=== PATIENT | male | born 1950 | race Caucasian/White ===

== ENCOUNTER 2018-12-30 13:45 | Outpatient (RCR) | payer OTHER, SELFPAY ==
[2018-12-20 13:44] VITALS: BP 123/76; PULSE 95; RESP 18; TEMP 36.1
--- NOTE | 2018-12-20 15:13 | PCM.WC.PN ---
(1) Ulcer of right lower leg Status: Chronic Current Visit: Yes Code(s): L97.919 - Non-pressure chronic ulcer of unspecified part of right lower leg with unspecified severity (2) Edema of both lower extremities Status: Chronic Current Visit: Yes Code(s): R60.0 - Localized edema (3) Type 2 diabetes mellitus Status: Chronic Current Visit: Yes Code(s): E11.9 - Type 2 diabetes mellitus without complications Type of Wound Date of Service: 12/20/18 Chief Complaint: Right anterior lower leg. History of Wound: Patient was hospitalized on 11/25/[address] [facility] in [place] for cellulitis. He was discharged to an F for help with his wound care. He is now home. We will attempt to obtain his hospital records. His cellulitis left him with two opened ulcers of his right lower leg. The posterior right leg ulcer is now healed. The right anterior lower leg is opened and draining. - Physical Exam Vital Signs Temp Pulse Resp BP 97.0 F L 95 18 123/76 H 12/20/18 13:44 12/20/18 13:44 12/20/18 13:44 12/20/18 13:44 Wound Measurements and Assessment WC - Nurse 1 - General Ulcer Measurement Start: 12/20/18 13:14 Freq: Status: Active Protocol: Activity Type Activity Date Activity User E-Sign Co-Sign Detail Recorded Client Recorded Date Recorded By Document 12/20/18 13:44 HI [id number] 12/20/18 13:57 HI 12/20/18 13:44 Wound Center Nurse 1 [Ulcer Assessment] #2 R Post Calf -Current Size (cm) - Length 6.5 -Current Size (cm) - Width 9.0 -Current Size (cm) - Depth 0.1 -Total Square Cm 58.50 -Date of Last Picture (Recall this 12/20/18 field) -Photo Taken Yes -Exudate Amt Medium -Exudate Type Serous -Wound Margin Flat & Intact -Granulation Amt Large (67-100%) -Granulation Quality Pale,Sinai,Red -Slough/Fibrin No -Texture (Leisa-wound Skin Appearance) Assessed, Excoriation, Localized Edema -Moisture (Leisa-wound Skin Appearance Assessed, ) Maceration, Weeping -Color (Leisa-wound Skin Appearance) Assessed -Temperature (Leisa-wound Skin No Abnormality Appearance) (Pt Warm) -Tenderness on Palpation (Leisa-wound No Skin Appearance) -Ulcer Cleansing Wound Cleanser -Foul Odor after Cleansing No -Anesthetic Used 4% Lidocaine Solution #1 R Anterior Dotson -Current Size (cm) - Length 9 -Current Size (cm) - Width 10.5 -Current Size (cm) - Depth 0.1 -Total Square Cm 94.5 -Date of Last Picture (Recall this 12/20/18 field) -Photo Taken Yes -Exudate Amt Medium -Exudate Type Serous -Wound Margin Flat & Intact -Granulation Amt Large (67-100%) -Granulation Quality Pale,Sinai,Red -Slough/Fibrin No -Texture (Leisa-wound Skin Appearance) Assessed, Localized Edema -Moisture (Leisa-wound Skin Appearance Assessed, ) Weeping -Color (Leisa-wound Skin Appearance) Assessed, Erythema -Temperature (Leisa-wound Skin No Abnormality Appearance) (Pt Warm) -Tenderness on Palpation (Leisa-wound No Skin Appearance) -Ulcer Cleansing Wound Cleanser -Foul Odor after Cleansing No -Anesthetic Used 4% Lidocaine Solution [Edema Assessment] -Right Calf (cm) 47 -Right Ankle (cm) 32 WC - Nurse 2 - General Ulcer CM Notes Start: 12/20/18 13:14 Freq: Status: Active Protocol: Activity Type Activity Date Activity User E-Sign Co-Sign Detail Recorded Client Recorded Date Recorded By Document 12/20/18 14:22 HONG [id number] 12/20/18 14:24 HONG 12/20/18 14:22 Wound Center Nurse 2 [Procedure/Treatment] #2 R Post Calf -Time 14:22 -Correct Patient No -Correct Side, Site, Position No -Correct Procedure No -Procedure Performed No -Post Debridement Size (cm) - Length 0 -Post Debridement Size (cm) - Width 0 -Post Debridement Size (cm) - Depth 0 -Total Square Cm 0 -Wound/Ulcer Outcome Healed- Epithelialized -Ulcer Cleansing Rinsed/ Irrigated with Saline -Foul Odor after Cleansing No -Bioengineered Tissue No -Bleeding Controlled with Pressure -Offloading No -Treatment Response Procedure Tolerated Well #1 R Anterior Dotson -Time 14:22 -Correct Patient Yes -Correct Side, Site, Position Yes -Correct Procedure Yes -Procedure Performed Yes -Type of Procedure Debridement -Clinical Debridement Subcutaneous -Post Debridement Size (cm) - Length 11 -Post Debridement Size (cm) - Width 8.8 -Post Debridement Size (cm) - Depth 0.1 -Total Square Cm 96.8 -Wound/Ulcer Outcome Not Healed -Ulcer Cleansing Rinsed/ Irrigated with Saline -Foul Odor after Cleansing No -Bioengineered Tissue No -Bleeding Controlled with Pressure -Offloading No -Treatment Response Procedure Tolerated Well [See Physician Procedure note for Specifics] Pain Scale: 0-10 Numeric [Pain] -Is Patient Pain Free? Yes Debridement Note Post-Debridement Measurements/Treatment WC - Nurse 2 - General Ulcer CM Notes Start: 12/20/18 13:14 Freq: Status: Active Protocol: Activity Type Activity Date Activity User E-Sign Co-Sign Detail Recorded Client Recorded Date Recorded By Document 12/20/18 14:22 HONG [id number] 12/20/18 14:24 HONG 12/20/18 14:22 Wound Center Nurse 2 #2 R Post Calf -Time 14:22 -Correct Patient No -Correct Side, Site, Position No -Correct Procedure No -Procedure Performed No -Post Debridement Size (cm) - Length 0 -Post Debridement Size (cm) - Width 0 -Post Debridement Size (cm) - Depth 0 -Total Square Cm 0 -Wound/Ulcer Outcome Healed- Epithelialized -Ulcer Cleansing Rinsed/ Irrigated with Saline -Foul Odor after Cleansing No -Bioengineered Tissue No -Bleeding Controlled with Pressure -Offloading No -Treatment Response Procedure Tolerated Well #1 R Anterior Dotson -Time 14:22 -Correct Patient Yes -Correct Side, Site, Position Yes -Correct Procedure Yes -Procedure Performed Yes -Type of Procedure Debridement -Clinical Debridement Subcutaneous -Post Debridement Size (cm) - Length 11 -Post Debridement Size (cm) - Width 8.8 -Post Debridement Size (cm) - Depth 0.1 -Total Square Cm 96.8 -Wound/Ulcer Outcome Not Healed -Ulcer Cleansing Rinsed/ Irrigated with Saline -Foul Odor after Cleansing No -Bioengineered Tissue No -Bleeding Controlled with Pressure -Offloading No -Treatment Response Procedure Tolerated Well Pain Scale: 0-10 Numeric Is Patient Pain Free? Yes Assessment/Plan Active Problems Ulcer of right lower leg (Chronic) Type 2 diabetes mellitus (Chronic) Edema of both lower extremities (Chronic)
--- NOTE | 2018-12-20 16:04 | PCM.WC.HP ---
(1) Ulcer of right lower leg Status: Chronic Code(s): L97.919 - Non-pressure chronic ulcer of unspecified part of right lower leg with unspecified severity (2) Edema of both lower extremities Status: Chronic Code(s): R60.0 - Localized edema (3) Type 2 diabetes mellitus Status: Chronic Code(s): E11.9 - Type 2 diabetes mellitus without complications (4) Tobacco abuse disorder Status: Chronic Code(s): Z72.0 - Tobacco use History of Present Illness Date of Service: 12/20/18 Chief Complaint: Right anterior lower leg ulcer History of Wound: Patient was hospitalized on 11/25/18 at [facility] in [place] for cellulitis. He was discharged to an F for help with his wound care. He is now home. We will attempt to obtain his hospital records. His cellulitis left him with two opened ulcers of his right lower leg. The posterior right leg ulcer is now healed. The right anterior lower leg is opened and draining. We will order Venous and Arterial studies. Wound care will be daily collagen hydrogel covered by adaptic. He will use tubigrip for compression. He denies any fevers, chills, nausea or vomiting. Past Medical History Past Medical History: Chronic Problems Ulcer of right lower leg (Chronic) Type 2 diabetes mellitus (Chronic) Edema of both lower extremities (Chronic) Tobacco abuse disorder (Chronic) Past Medical History: Obstructive sleep apnea, hypertension and elevated cholesterol Allergies/Adverse Reactions: Allergies No Known Allergies Allergy (Verified 12/20/18 14:26) Home Medications: Ambulatory Orders Medication Instructions Recorded Aspirin [Aspir-Low] 81 mg PO DAILY 12/20/18 Atorvastatin Calcium [Lipitor] 20 mg PO QHS 12/20/18 Cholecalciferol (Vitamin D3) 5,000 unit PO DAILY 12/20/18 [Vitamin D3] Glipizide 5 mg PO DAILY 12/20/18 Hydrochlorothiazide [Hctz] 25 mg PO DAILY 12/20/18 Lisinopril 5 mg PO DAILY 12/20/18 Multivitamin [Multivitamins] 1 ea PO DAILY 12/20/18 Niacin [Niacin ER] 1,000 mg PO DAILY 12/20/18 Potassium Chloride [Klor-Con M20] 20 meq PO DAILY 12/20/18 Silver Sulfadiazine 1% Crm 1 applic TOPICAL DAILY 12/20/18 [Silvadene (BK)] Smoking Status: Current every day smoker Review of Systems Constitutional: Denies: Chills, Fever, Weight Change Eyes: Denies: Pain, Vision Change HEENT: Denies: Difficulty Hearing, Difficulty Swallowing, Sinus Congestion Cardiovascular: Denies: Chest Pain, Palpitations Respiratory: Denies: Cough, Shortness of Breath Gastrointestinal: Denies: Diarrhea, Nausea, Vomiting Skin: Reports: Wounds - right anterior leg ulcer. Right postior leg ulcer is now healed. Neurological: Denies: Balance problems, Slurred speech, Confusion Endocrine: Denies: Heat/ Cold Intolerance, Polydipsia, Polyuria - Physical Exam Vital Signs Temp Pulse Resp BP 97.0 F L 95 18 123/76 H 12/20/18 13:44 12/20/18 13:44 12/20/18 13:44 12/20/18 13:44 General: Alert, Oriented x3, Cooperative HEENT: Atraumatic Oral: Moist Mucosa Lungs: Clear to auscultation, Normal air movement Cardiovascular: Regular rate, Regular Rhythm Abdomen: Bowel Sounds Present, Soft, Obese Extremities: Capillary Refill Less than 3 Seconds, Diminished Peripheral Pulses, Edema Skin: Ulcer/ Wound - Right anterior lower leg ulcer. Right posterior ulcer is healed. Wound Measurements and Assessment WC - Nurse 1 - General Ulcer Measurement Start: 12/20/18 13:14 Freq: Status: Active Protocol: Activity Type Activity Date Activity User E-Sign Co-Sign Detail Recorded Client Recorded Date Recorded By Document 12/20/18 13:44 OR [id number] 12/20/18 13:57 OR 12/20/18 13:44 Wound Center Nurse 1 [Ulcer Assessment] #2 R Post Calf -Current Size (cm) - Length 6.5 -Current Size (cm) - Width 9.0 -Current Size (cm) - Depth 0.1 -Total Square Cm 58.50 -Date of Last Picture (Recall this 12/20/18 field) -Photo Taken Yes -Exudate Amt Medium -Exudate Type Serous -Wound Margin Flat & Intact -Granulation Amt Large (67-100%) -Granulation Quality Pale,Amesti,Red -Slough/Fibrin No -Texture (Leisa-wound Skin Appearance) Assessed, Excoriation, Localized Edema -Moisture (Leisa-wound Skin Appearance Assessed, ) Maceration, Weeping -Color (Leisa-wound Skin Appearance) Assessed -Temperature (Leisa-wound Skin No Abnormality Appearance) (Pt Warm) -Tenderness on Palpation (Leisa-wound No Skin Appearance) -Ulcer Cleansing Wound Cleanser -Foul Odor after Cleansing No -Anesthetic Used 4% Lidocaine Solution #1 R Anterior Dotson -Current Size (cm) - Length 9 -Current Size (cm) - Width 10.5 -Current Size (cm) - Depth 0.1 -Total Square Cm 94.5 -Date of Last Picture (Recall this 12/20/18 field) -Photo Taken Yes -Exudate Amt Medium -Exudate Type Serous -Wound Margin Flat & Intact -Granulation Amt Large (67-100%) -Granulation Quality Pale,Amesti,Red -Slough/Fibrin No -Texture (Leisa-wound Skin Appearance) Assessed, Localized Edema -Moisture (Leisa-wound Skin Appearance Assessed, ) Weeping -Color (Leisa-wound Skin Appearance) Assessed, Erythema -Temperature (Leisa-wound Skin No Abnormality Appearance) (Pt Warm) -Tenderness on Palpation (Leisa-wound No Skin Appearance) -Ulcer Cleansing Wound Cleanser -Foul Odor after Cleansing No -Anesthetic Used 4% Lidocaine Solution [Edema Assessment] -Right Calf (cm) 47 -Right Ankle (cm) 32 WC - Nurse 2 - General Ulcer CM Notes Start: 12/20/18 13:14 Freq: Status: Active Protocol: Activity Type Activity Date Activity User E-Sign Co-Sign Detail Recorded Client Recorded Date Recorded By Document 12/20/18 14:22 HONG [id number] 12/20/18 14:24 HONG 12/20/18 14:22 Wound Center Nurse 2 [Procedure/Treatment] #2 R Post Calf -Time 14:22 -Correct Patient No -Correct Side, Site, Position No -Correct Procedure No -Procedure Performed No -Post Debridement Size (cm) - Length 0 -Post Debridement Size (cm) - Width 0 -Post Debridement Size (cm) - Depth 0 -Total Square Cm 0 -Wound/Ulcer Outcome Healed- Epithelialized -Ulcer Cleansing Rinsed/ Irrigated with Saline -Foul Odor after Cleansing No -Bioengineered Tissue No -Bleeding Controlled with Pressure -Offloading No -Treatment Response Procedure Tolerated Well #1 R Anterior Dotson -Time 14:22 -Correct Patient Yes -Correct Side, Site, Position Yes -Correct Procedure Yes -Procedure Performed Yes -Type of Procedure Debridement -Clinical Debridement Subcutaneous -Post Debridement Size (cm) - Length 11 -Post Debridement Size (cm) - Width 8.8 -Post Debridement Size (cm) - Depth 0.1 -Total Square Cm 96.8 -Wound/Ulcer Outcome Not Healed -Ulcer Cleansing Rinsed/ Irrigated with Saline -Foul Odor after Cleansing No -Bioengineered Tissue No -Bleeding Controlled with Pressure -Offloading No -Treatment Response Procedure Tolerated Well [See Physician Procedure note for Specifics] Pain Scale: 0-10 Numeric [Pain] -Is Patient Pain Free? Yes Musculoskeletal: No Tenderness to Palpation of Joints or Extremities Neurological: Neuro grossly intact Psych/Mental Status: Normal Affect, Appropriate Debridement Note Post-Debridement Measurements/Treatment WC - Nurse 2 - General Ulcer CM Notes Start: 12/20/18 13:14 Freq: Status: Active Protocol: Activity Type Activity Date Activity User E-Sign Co-Sign Detail Recorded Client Recorded Date Recorded By Document 12/20/18 14:22 [id number] 12/20/18 14:24 12/20/18 14:22 Wound Center Nurse 2 #2 R Post Calf -Time 14:22 -Correct Patient No -Correct Side, Site, Position No -Correct Procedure No -Procedure Performed No -Post Debridement Size (cm) - Length 0 -Post Debridement Size (cm) - Width 0 -Post Debridement Size (cm) - Depth 0 -Total Square Cm 0 -Wound/Ulcer Outcome Healed- Epithelialized -Ulcer Cleansing Rinsed/ Irrigated with Saline -Foul Odor after Cleansing No -Bioengineered Tissue No -Bleeding Controlled with Pressure -Offloading No -Treatment Response Procedure Tolerated Well #1 R Anterior Dotson -Time 14:22 -Correct Patient Yes -Correct Side, Site, Position Yes -Correct Procedure Yes -Procedure Performed Yes -Type of Procedure Debridement -Clinical Debridement Subcutaneous -Post Debridement Size (cm) - Length 11 -Post Debridement Size (cm) - Width 8.8 -Post Debridement Size (cm) - Depth 0.1 -Total Square Cm 96.8 -Wound/Ulcer Outcome Not Healed -Ulcer Cleansing Rinsed/ Irrigated with Saline -Foul Odor after Cleansing No -Bioengineered Tissue No -Bleeding Controlled with Pressure -Offloading No -Treatment Response Procedure Tolerated Well Pain Scale: 0-10 Numeric Is Patient Pain Free? Yes Wound debrided: Right anterior lower leg Laterality: Right Type of Debridement: Excisional debridement Anesthesia Used: 4% Lidocaine Solution, 5% Lidocaine Gel Depth: Down to and including healthy tissue, in the subcutaneous layer Percentage of wound debrided: 100 Instrument Used: 7mm curette Tissue Removed: Subcutaneous tissue and slough Severity: Limited To Skin Breakdown Amount of bleeding with debridement: Mild Bleeding Controlled with: Pressure, Compression and gauze Patient tolerated procedure well Assessment/Plan Ordered arterial and venous studies. Assessment: 1. Ulcer of right anterior lower leg. 2. Edema of both lower extremities. 3. Type 2 DM. 4. Tobacco abuse disorder Plan: Patient was seen and evaluated in the wound center today. A subcutaneous debridement was performed and patient tolerated it well. Wound care to his right anterior lower leg will be colloagen hydrogel covered by adaptic, with tubigrip for compression. Will order arterial and venous studies. Due to his significant amount of edema, would like to use 3M double wraps on him in the future after we find out his vascular studies. Encouraged him to elevate his legs when he is seated. Encouraged him to increase his protein intake to help with wound healing. Encouraged him to stop smoking. He willl follow up in one week. Code Visit Office Visits / Consults: 72160 OV L3 New - 25 modifier [id number]: [id number] Niki subq tissue 20 sq cm/< Add On Codes: 80560 Niki subq tissue add-on - x4
--- NOTE | 2018-12-27 09:33 | VDLE_ITS ---
Reason For Study: Edema RIGHT LEFT CFV is compressible, spontaneous, phasic, CFV is compressible, spontaneous, phasic, competent and demonstrates normal competent, and demonstrates normal augmentation. augmentation. FV is compressible, spontaneous, phasic, FV is compressible, spontaneous, phasic, competent and demonstrates normal competent and demonstrates normal augmentation. augmentation. POP V is compressible, spontaneous, phasic, POP V is compressible, spontaneous, phasic, competent and demonstrates normal competent and demonstrates normal augmentation. augmentation. T/P Trunk is compressible. T/P Trunk is compressible. PTV is compressible. PTV is compressible. RT PerV is compressible. LT PerV is compressible. SFJ is INCOMPETENT and measures 0.87 x 1.01 SFJ is competent and measures 0.67 x 0.66 cm. cm. GSV proximal thigh measures 0.74 x 0.76 cm. GSV proximal thigh measures 0.61 x 0.61 cm. GSV at knee measures 0.44 x 0.47 cm. GSV at knee measures 0.54 x 0.58 cm. GSV INCOMPETENT throughout for greater than GSV is competent throughout. 0.5 seconds. SSV proximal calf is competent and measures ASV proximal calf is INCOMPETENT for greater 0.31 x 0.31 cm. than 0.5 seconds and measures 0.33 x 0.36 cm. Procedure SSV proximal calf is INCOMPETENT for greater Exam performed in department. than 0.5 seconds and measures 0.16 x 0.16 cm. A preliminary report was called and/or faxed to . Interpretation Summary Deep veins of the lower extremities are bilaterally patent and compressible segmentally. There is no evidence of deep vein thrombosis on either side. Valvular competence appears intact within the proximal deep venous systems bilaterally. The great saphenous veins appear bilaterally patent and compressible segmentally. The right sapheno-femoral junction is incompetent . The left sapheno- femoral junction is competent . The right great saphenous vein appears segmentally competent. The left great saphenous vein appears segmentally incompetent. The right small saphenous vein is patent and competent. The left small saphenous vein is patent and incompetent. The left accessory saphenous vein in the proximal calf is incompetent. Ordering Physician: Juliane Mcdowell Referring Physician: Norman Briceno Performed By: Celia Curran RVT
--- NOTE | 2018-12-27 09:34 | ART_ITS ---
Reason For Study: PVD/PAD Procedure A bilateral lower extremity continuous wave Doppler with analog waveform analysis,segmental pressures,and ankle brachial indexes without exercise. Left Segmental Pressures Left brachial= 145mmHg. Left posterior tibial artery = 165mmHg. Left dorsalis pedis artery = 155mmHg. Left digit = 104 mmHg. The left dorsalis pedis waveforms are triphasic. The left posterior tibial artery waveforms are triphasic. Right Segmental Pressures Right brachial= 134mmHg. Right posterior tibial artery = 131mmHg. Right dorsalis pedis artery = 147mmHg. Right digit = 88 mmHg. The right dorsalis pedis waveforms are triphasic. The right posterior tibial artery waveforms are triphasic. Indices The right ankle brachial index by the dorsalis pedis is 1.01. The right ankle brachial index by the posterior tibial artery is 0.90. The right digital-brachial index is 0.61. The left ankle brachial index by the dorsalis pedis is 1.07. The left ankle brachial index by the posterior tibial artery is 1.14. The left digital-brachial index is 0.72. Interpretation Summary Triphasic Doppler waveforms are noted at ankle level bilaterally. Pulse-volume recordings appear satisfactory at all levels bilaterally. Resting ankle-brachial indices are normal bilaterally. The right digital-brachial index is mildly diminished. The left digital-brachial index is normal. Arterial flow appears normal to ankle level bilaterally, as well as at digital level on the left. There is evidence of mild, distal, small-vessel arterial occlusive disease at digital level on the right. Ordering Physician: Juliane Mcdowell Referring Physician: Norman Briceno Performed By: Celia Curran RVMike
[2018-12-27 13:16] VITALS: BP 140/79; PULSE 74; RESP 18; TEMP 36.2
--- NOTE | 2018-12-27 14:46 | PCM.WC.PN ---
(1) Ulcer of right lower leg Status: Chronic Current Visit: Yes Code(s): L97.919 - Non-pressure chronic ulcer of unspecified part of right lower leg with unspecified severity (2) Edema of both lower extremities Status: Chronic Current Visit: Yes Code(s): R60.0 - Localized edema (3) Type 2 diabetes mellitus Status: Chronic Current Visit: Yes Code(s): E11.9 - Type 2 diabetes mellitus without complications (4) Tobacco abuse disorder Status: Chronic Current Visit: Yes Code(s): Z72.0 - Tobacco use Type of Wound Date of Service: 12/27/18 Chief Complaint: Right anterior lower leg ulcer History of Wound: Patient was hospitalized on 11/25/18 at [facility] in [place] for cellulitis. He was discharged to an ECF for help with his wound care. He is now home. His cellulitis left him with two opened ulcers of his right lower leg. He has a +3 pitting edema bilateral lower extremities. The posterior right leg ulcer is now healed. The right anterior lower leg is opened and draining. Wound care will be daily collagen hydrogel covered by adaptic. He will use tubigrip for compression. He had vascular studies on 12/27/18. Venous Duplex US showed the right sapheno-femoral junction is incompeten. The left great saphenous vein appears segmentally incompetent. The left small saphenous vein is patent and incompetent. The left accessory saphenous vein in the proximal calf is incompetent. The other veins are competent. Arterial studies show right ZAYDA=1.01, right digital brachial index is 0.61, there is evidence of mild, distal, small-vessel arterial occlusive disease at the digital level on the right. Left ZAYDA=1.07, the left digital-brachial index is 0.72, arterial rayna is normal on the left, including at the digital level. He denies any fevers, chills, nausea or vomiting. Progress of Wound: Stable - Physical Exam Vital Signs Temp Pulse Resp BP 97.1 F L 74 18 140/79 H 12/27/18 13:16 12/27/18 13:16 12/27/18 13:16 12/27/18 13:16 General: Alert, Oriented x3, Cooperative HEENT: Atraumatic Oral: Moist Mucosa Lungs: Normal air movement Cardiovascular: Regular rate Extremities: Capillary Refill Less than 3 Seconds, Diminished Peripheral Pulses, Edema - Bilateral lower extremity edema +3 pitting Skin: Ulcer/ Wound - Right anterior lower leg ulcer Wound Measurements and Assessment WC - Nurse 1 - General Ulcer Measurement Start: 12/20/18 13:14 Freq: Status: Active Protocol: Activity Type Activity Date Activity User E-Sign Co-Sign Detail Recorded Client Recorded Date Recorded By Document 12/27/18 13:16 DL [id number] 12/27/18 13:24 DL 12/27/18 13:16 Wound Center Nurse 1 [Ulcer Assessment] #1 R Anterior Dotson -Current Size (cm) - Length 0.1 -Current Size (cm) - Width 0.1 -Current Size (cm) - Depth 0.1 -Total Square Cm 0.01 -Photo Taken No -Exudate Amt None Present -Wound Margin Flat & Intact -Granulation Amt Large (67-100%) -Granulation Quality [place] -Necrosis Amt None Present (0 %) -Structure Exposed N/A -Texture (Leisa-wound Skin Appearance) Scarring -Moisture (Leisa-wound Skin Appearance Dry/Scaly ) -Color (Leisa-wound Skin Appearance) Hemosiderin Staining -Temperature (Leisa-wound Skin No Abnormality Appearance) (Pt Warm) -Tenderness on Palpation (Leisa-wound No Skin Appearance) -Ulcer Cleansing Wound Cleanser -Foul Odor after Cleansing No -Anesthetic Used 4% Lidocaine Solution [Edema Assessment] -Right Calf (cm) 50.5 -Right Ankle (cm) 34 - Nurse 2 - General Ulcer CM Notes Start: 12/20/18 13:14 Freq: Status: Active Protocol: Activity Type Activity Date Activity User E-Sign Co-Sign Detail Recorded Client Recorded Date Recorded By Document 12/27/18 13:39 [id number] 12/27/18 13:45 12/27/18 13:39 Wound Center Nurse 2 [Procedure/Treatment] #1 R Anterior Dotson -Time 13:42 -Correct Patient Yes -Correct Side, Site, Position Yes -Correct Procedure Yes -Procedure Performed Yes -Type of Procedure Debridement -Clinical Debridement Subcutaneous -Post Debridement Size (cm) - Length 1.5 -Post Debridement Size (cm) - Width 1.0 -Post Debridement Size (cm) - Depth 0.1 -Total Square Cm 1.50 -Wound/Ulcer Outcome Not Healed -Ulcer Cleansing Rinsed/ Irrigated with Saline -Foul Odor after Cleansing No -Bioengineered Tissue No -Bleeding Controlled with Pressure -Offloading No -Treatment Response Procedure Tolerated Well [See Physician Procedure note for Specifics] Pain Scale: 0-10 Numeric [Pain] -Is Patient Pain Free? Yes Neurological: Neuro grossly intact Psych/Mental Status: Normal Affect, Appropriate Debridement Note Post-Debridement Measurements/Treatment WC - Nurse 2 - General Ulcer CM Notes Start: 12/20/18 13:14 Freq: Status: Active Protocol: Activity Type Activity Date Activity User E-Sign Co-Sign Detail Recorded Client Recorded Date Recorded By Document 12/20/18 14:22 [id number] 12/20/18 14:24 Document 12/27/18 13:39 [id number] 12/27/18 13:45 12/20/18 12/27/18 14:22 13:39 Wound Center Nurse 2 #2 R Post Calf -Time 14:22 -Correct Patient No -Correct Side, Site, Position No -Correct Procedure No -Procedure Performed No -Post Debridement Size (cm) - Length 0 -Post Debridement Size (cm) - Width 0 -Post Debridement Size (cm) - Depth 0 -Total Square Cm 0 -Wound/Ulcer Outcome Healed- Epithelialized -Ulcer Cleansing Rinsed/ Irrigated with Saline -Foul Odor after Cleansing No -Bioengineered Tissue No -Bleeding Controlled with Pressure -Offloading No -Treatment Response Procedure Tolerated Well #1 R Anterior Dotson -Time 14:22 13:42 -Correct Patient Yes Yes -Correct Side, Site, Position Yes Yes -Correct Procedure Yes Yes -Procedure Performed Yes Yes -Type of Procedure Debridement Debridement -Clinical Debridement Subcutaneous Subcutaneous -Post Debridement Size (cm) - Length 11 1.5 -Post Debridement Size (cm) - Width 8.8 1.0 -Post Debridement Size (cm) - Depth 0.1 0.1 -Total Square Cm 96.8 1.50 -Wound/Ulcer Outcome Not Healed Not Healed -Ulcer Cleansing Rinsed/ Rinsed/ Irrigated with Irrigated with Saline Saline -Foul Odor after Cleansing No No -Bioengineered Tissue No No -Bleeding Controlled with Pressure Pressure -Offloading No No -Treatment Response Procedure Procedure Tolerated Well Tolerated Well Pain Scale: 0-10 Numeric Is Patient Pain Free? Yes Yes Wound debrided: anterior lower leg Laterality: Right Type of Debridement: Excisional debridement Anesthesia Used: 4% Lidocaine Solution, 5% Lidocaine Gel Depth: Down to and including healthy tissue, in the subcutaneous layer Percentage of wound debrided: 100 Instrument Used: 7mm curette Tissue Removed: Subcutaneous tissue and slough Severity: Limited To Skin Breakdown Amount of bleeding with debridement: Mild Bleeding Controlled with: Pressure, Compression and gauze Patient tolerated procedure well Assessment/Plan Active Problems Ulcer of right lower leg (Chronic) Type 2 diabetes mellitus (Chronic) Edema of both lower extremities (Chronic) Tobacco abuse disorder (Chronic) Assessment: 1. Ulcer of right anterior lower leg. 2. Edema of both lower extremities. 3. Type 2 DM. 4. Tobacco abuse disorder Plan: Patient was seen and evaluated in the wound center today. A subcutaneous debridement was performed and patient tolerated it well. Wound care to his right anterior lower leg will be colloagen hydrogel covered by adaptic, with tubigrip for compression. Obtained arterial and venous studies which showed some venous insufficency bilaterally. There is small-vessel arterial occlusive disease at the digital level on the right. None on the left. Due to his significant amount of edema, will start 3M double wraps bilaterally. He will come back on Wednesday for a nurse visit to evaluate how he tolerating the waps and to be rewrapped. Encouraged him to elevate his legs when he is seated. Encouraged him to increase his protein intake to help with wound healing. Encouraged him to stop smoking. He willl follow up on Wednesday for a nurse visit and in one week. Code Visit [id number]: [id number] Niki subq tissue 20 sq cm/<
== END 2018-12-31 23:59 ==
LOC: WC 13:45
PROVIDERS: Family Provider Internal Medicine; PCP Internal Medicine; Visit Provider Nurse Practitioner Family
DX: E11.622 Type 2 diabetes mellitus with other skin ulcer (principal); L97.211 Non-pressure chronic ulcer of right calf limited to breakdown of skin; R60.0 Localized edema; E11.51 Type 2 diabetes mellitus with diabetic peripheral angiopathy without gangrene; E78.00 Pure hypercholesterolemia, unspecified; I10 Essential (primary) hypertension; G47.33 Obstructive sleep apnea (adult) (pediatric); F17.200 Nicotine dependence, unspecified, uncomplicated; Z79.899 Other long term (current) drug therapy; Z79.82 Long term (current) use of aspirin
CPT/HCPCS: 11042; 11045; 29581; 93923; 93970; 99203; 99212; G0463

== ENCOUNTER 2019-01-17 13:30 | Outpatient (RCR) | payer OTHER, SELFPAY ==
[2019-01-01 01:13] VITALS: BP 140/79; PULSE 74; RESP 18; TEMP 36.2
[2019-01-03 15:25] VITALS: BP 155/74; PULSE 92; RESP 20; TEMP 36.6
--- NOTE | 2019-01-03 16:29 | PCM.WC.PN ---
(1) Edema of both lower extremities Status: Chronic Code(s): R60.0 - Localized edema (2) Ulcer of right lower leg Status: Chronic Code(s): L97.919 - Non-pressure chronic ulcer of unspecified part of right lower leg with unspecified severity (3) Type 2 diabetes mellitus Status: Chronic Code(s): E11.9 - Type 2 diabetes mellitus without complications (4) Tobacco abuse disorder Status: Chronic Code(s): Z72.0 - Tobacco use Type of Wound Date of Service: 01/03/19 Chief Complaint: Right anterior lower leg ulcer History of Wound: Patient was hospitalized on 11/25/18 at [facility] in [place] for cellulitis. He was discharged to an ECF for help with his wound care. He is now home. His cellulitis left him with two opened ulcers of his right lower leg. He has a +3 pitting edema bilateral lower extremities. The posterior right leg ulcer is now healed. The right anterior lower leg is opened and draining. Wound care will be daily collagen hydrogel covered by adaptic. He will use tubigrip for compression. He had vascular studies on 12/27/18. Venous Duplex US showed the right sapheno-femoral junction is incompeten. The left great saphenous vein appears segmentally incompetent. The left small saphenous vein is patent and incompetent. The left accessory saphenous vein in the proximal calf is incompetent. The other veins are competent. Arterial studies show right ZAYDA=1.01, right digital brachial index is 0.61, there is evidence of mild, distal, small-vessel arterial occlusive disease at the digital level on the right. Left ZAYDA=1.07, the left digital-brachial index is 0.72, arterial rayna is normal on the left, including at the digital level. He denies any fevers, chills, nausea or vomiting. Progress of Wound: Right leg ulcer is healed. Continues to have +3 pitting edema although improved with 3M double wraps which he is tolerating - Physical Exam Vital Signs Temp Pulse Resp BP 97.8 F 92 20 H 155/74 H 01/03/19 15:25 01/03/19 15:25 01/03/19 15:25 01/03/19 15:25 General: Alert, Oriented x3, Cooperative HEENT: Atraumatic Oral: Moist Mucosa Lungs: Normal air movement Cardiovascular: Regular rate Extremities: Capillary Refill Less than 3 Seconds, Diminished Peripheral Pulses, Edema Skin: Ulcer/ Wound - right lower leg ulcer is healed Wound Measurements and Assessment - Nurse 1 - General Ulcer Measurement Start: 01/03/19 15:25 Freq: Status: Active Protocol: Activity Type Activity Date Activity User E-Sign Co-Sign Detail Recorded Client Recorded Date Recorded By Document 01/03/19 15:25 RB [id number] 01/03/19 15:34 RB 01/03/19 15:25 Wound Center Nurse 1 [Ulcer Assessment] #1 R Anterior Dotson -Combined with other wound No -Current Size (cm) - Length 0.1 -Current Size (cm) - Width 0.1 -Current Size (cm) - Depth 0.1 -Total Square Cm 0.01 -Photo Taken No -Tunneling No -Undermining/Tunneling No -Circular Undermining No -Exudate Amt None Present -Wound Margin Flat & Intact -Granulation Amt None Present (0 %) -Granulation Quality N/A -Slough/Fibrin No -Necrosis Amt None Present (0 %) -Texture (Leisa-wound Skin Appearance) Assessed, Localized Edema -Moisture (Leisa-wound Skin Appearance No Abnormality, ) Assessed -Color (Leisa-wound Skin Appearance) No Abnormality, Hemosiderin Staining -Temperature (Leisa-wound Skin No Abnormality Appearance) (Pt Warm) -Tenderness on Palpation (Leisa-wound No Skin Appearance) -Ulcer Cleansing soap and watetr -Foul Odor after Cleansing No [Edema Assessment] -Lower Limb Edema Present Yes -Right Calf (cm) 50.0 -Right Ankle (cm) 30.5 -Left Calf (cm) 45.8 -Left Ankle (cm) 26.0 - Nurse 2 - General Ulcer CM Notes Start: 01/03/19 15:25 Freq: Status: Active Protocol: Activity Type Activity Date Activity User E-Sign Co-Sign Detail Recorded Client Recorded Date Recorded By Document 01/03/19 16:02 [email or web address] [id number] 01/03/19 16:03 01/03/19 16:02 Wound Center Nurse 2 [Procedure/Treatment] #1 R Anterior Dotson -Correct Patient No -Correct Side, Site, Position No -Correct Procedure No -Procedure Performed No -Post Debridement Size (cm) - Length 0.1 -Post Debridement Size (cm) - Width 0.1 -Post Debridement Size (cm) - Depth 0.1 -Total Square Cm 0.01 -Wound/Ulcer Outcome Healed- Epithelialized [See Physician Procedure note for Specifics] Pain Scale: 0-10 Numeric [Pain] -Is Patient Pain Free? Yes Musculoskeletal: No Tenderness to Palpation of Joints or Extremities Neurological: Neuro grossly intact Psych/Mental Status: Normal Affect, Appropriate Debridement Note Post-Debridement Measurements/Treatment WC - Nurse 2 - General Ulcer CM Notes Start: 01/03/19 15:25 Freq: Status: Active Protocol: Activity Type Activity Date Activity User E-Sign Co-Sign Detail Recorded Client Recorded Date Recorded By Document 01/03/19 16:02 [id number] 01/03/19 16:03 HONG 01/03/19 16:02 Wound Center Nurse 2 #1 R Anterior Dotson -Correct Patient No -Correct Side, Site, Position No -Correct Procedure No -Procedure Performed No -Post Debridement Size (cm) - Length 0.1 -Post Debridement Size (cm) - Width 0.1 -Post Debridement Size (cm) - Depth 0.1 -Total Square Cm 0.01 -Wound/Ulcer Outcome Healed- Epithelialized Pain Scale: 0-10 Numeric Is Patient Pain Free? Yes No debridement was completed today Assessment/Plan Assessment: 1. Ulcer of right anterior lower leg. 2. Edema of both lower extremities. 3. Type 2 DM. 4. Tobacco abuse disorder Plan: Patient was seen and evaluated in the wound center today. His right leg ulcer is healed today. Obtained arterial and venous studies which showed some venous insufficency bilaterally. There is small-vessel arterial occlusive disease at the digital level on the right. None on the left. Due to his significant amount of edema, will continue 3M double wraps bilaterally. He tolerated them well, so he will return in one week. Encouraged him to elevate his legs when he is seated. Encouraged him to increase his protein intake to help with wound healing. Encouraged him to stop smoking. Instructed him to call if he develops any issues so he can come in early. If he has no issues he will follow up in one week. Code Visit Office Visits / Consults: [id number] OV L3 Est
[2019-01-10 13:25] VITALS: BP 134/62; PULSE 87; RESP 18; TEMP 36.2
--- NOTE | 2019-01-10 14:33 | PN.PCM_ITS ---
(1) Edema of both lower extremities Status: Chronic Current Visit: Yes Code(s): R60.0 - Localized edema (2) Ulcer of right lower leg Status: Chronic Current Visit: No Code(s): L97.919 - Non-pressure chronic ulcer of unspecified part of right lower leg with unspecified severity (3) Type 2 diabetes mellitus Status: Chronic Current Visit: Yes Code(s): E11.9 - Type 2 diabetes mellitus without complications (4) Tobacco abuse disorder Status: Chronic Current Visit: Yes Code(s): Z72.0 - Tobacco use Type of Wound Date of Service: 01/10/19 Chief Complaint: Right anterior lower leg ulcer History of Wound: Patient was hospitalized on 11/25/18 at [facility] in [place] for cellulitis. He was discharged to an ECF for help with his wound care. He is now home. His cellulitis left him with two opened ulcers of his right lower leg. He has a +3 pitting edema bilateral lower extremities. The posterior right leg ulcer is now healed. The right anterior lower leg is also healed. He had vascular studies on 12/27/18. Venous Duplex US showed the right sapheno-femoral junction is incompeten. The left great saphenous vein appears segmentally incompetent. The left small saphenous vein is patent and incompetent. The left accessory saphenous vein in the proximal calf is incompetent. The other veins are competent. Arterial studies show right ZAYDA=1.01, right digital brachial index is 0.61, there is evidence of mild, distal, small-vessel arterial occlusive disease at the digital level on the right. Left ZAYDA=1.07, the left digital-brachial index is 0.72, arterial rayna is normal on the left, including at the digital level. He denies any fevers, chills, nausea or vomiting. 3M double layer wraps will be used again this week to help with his bilateral lower leg edema. He has been tolerating the wraps well. His ulcers continue to remain healed. Will order Circaid compression stockings for him so they can be applied next week after the 3M wraps are removed. Progress of Wound: Right leg ulcer is healed. Edema has improved with 3M double wraps which he is tolerating well. Will order Circaid compression wraps for him. - Physical Exam Vital Signs Temp Pulse Resp BP 97.1 F L 87 18 134/62 H 01/10/19 13:25 01/10/19 13:25 01/10/19 13:25 01/10/19 13:25 General: Alert, Oriented x3, Cooperative HEENT: Atraumatic Oral: Moist Mucosa Lungs: Normal air movement Cardiovascular: Regular rate Abdomen: Obese Extremities: Capillary Refill Less than 3 Seconds, Diminished Peripheral Pulses, Edema Skin: No rashes, No breakdown Wound Measurements and Assessment WC - Nurse 1 - General Ulcer Measurement Start: 01/03/19 15:25 Freq: Status: Active Protocol: Activity Type Activity Date Activity User E-Sign Co-Sign Detail Recorded Client Recorded Date Recorded By Document 01/10/19 13:25 [id number] 01/10/19 13:33 01/10/19 13:25 Wound Center Nurse 1 [Ulcer Assessment] #1 R Anterior Dotson -Combined with other wound No -Current Size (cm) - Length 0 -Current Size (cm) - Width 0 -Current Size (cm) - Depth 0 -Total Square Cm 0 -Date of Last Picture (Recall this 01/10/19 field) -Photo Taken Yes -Undermining/Tunneling No -Circular Undermining No -Change in Wound Grade/Stage Yes Query Text:If change please identify the Stage/Grade in the comment (ie. S2 G3) -Exudate Amt None Present -Wound Margin Flat & Intact -Granulation Amt None Present (0 %) -Slough/Fibrin No -Necrosis Amt None Present (0 %) -Structure Exposed N/A -Texture (Leisa-wound Skin Appearance) No Abnormality, Assessed -Moisture (Leisa-wound Skin Appearance No Abnormality, ) Assessed -Color (Leisa-wound Skin Appearance) No Abnormality, Assessed -Temperature (Leisa-wound Skin No Abnormality Appearance) (Pt Warm) -Tenderness on Palpation (Leisa-wound No Skin Appearance) -Ulcer Cleansing Not Cleansed -Foul Odor after Cleansing No [Edema Assessment] -Lower Limb Edema Present Yes -Right Calf (cm) 46.6 -Right Ankle (cm) 30.7 -Left Calf (cm) 45.1 -Left Ankle (cm) 27.1 WC - Nurse 2 - General Ulcer CM Notes Start: 01/03/19 15:25 Freq: Status: Active Protocol: Activity Type Activity Date Activity User E-Sign Co-Sign Detail Recorded Client Recorded Date Recorded By Document 01/10/19 14:13 [id number] 01/10/19 14:13 01/10/19 14:13 Wound Center Nurse 2 [Procedure/Treatment] #1 R Anterior Dotson -Correct Patient No -Correct Side, Site, Position No -Correct Procedure No -Procedure Performed No -Post Debridement Size (cm) - Length 0 -Post Debridement Size (cm) - Width 0 -Post Debridement Size (cm) - Depth 0 -Total Square Cm 0 -Wound/Ulcer Outcome Healed- Epithelialized [See Physician Procedure note for Specifics] Pain Scale: 0-10 Numeric [Pain] -Is Patient Pain Free? Yes Musculoskeletal: No Tenderness to Palpation of Joints or Extremities Neurological: Neuro grossly intact Psych/Mental Status: Normal Affect, Appropriate Debridement Note Post-Debridement Measurements/Treatment WC - Nurse 2 - General Ulcer CM Notes Start: 01/03/19 15:25 Freq: Status: Active Protocol: Activity Type Activity Date Activity User E-Sign Co-Sign Detail Recorded Client Recorded Date Recorded By Document 01/03/19 16:02 [id number] 01/03/19 16:03 Document 01/10/19 14:13 [id number] 01/10/19 14:13 01/03/19 01/10/19 16:02 14:13 Wound Center Nurse 2 #1 R Anterior Dotson -Correct Patient No No -Correct Side, Site, Position No No -Correct Procedure No No -Procedure Performed No No -Post Debridement Size (cm) - Length 0.1 0 -Post Debridement Size (cm) - Width 0.1 0 -Post Debridement Size (cm) - Depth 0.1 0 -Total Square Cm 0.01 0 -Wound/Ulcer Outcome Healed- Healed- Epithelialized Epithelialized Pain Scale: 0-10 Numeric Is Patient Pain Free? Yes Yes No debridement was completed today Assessment/Plan Active Problems Type 2 diabetes mellitus (Chronic) Edema of both lower extremities (Chronic) Tobacco abuse disorder (Chronic) Assessment: 1. Ulcer of right anterior lower leg- healed. 2. Edema of both lower extremities. 3. Type 2 DM. 4. Tobacco abuse disorder Plan: Patient was seen and evaluated in the wound center today. His right leg ulcer continues to remain healed today. Obtained arterial and venous studies which showed some venous insufficency bilaterally. There is small-vessel arterial occlusive disease at the digital level on the right. None on the left. Due to his significant amount of edema, will continue 3M double wraps bilaterally. He tolerated them well, so he will return in one week. Encouraged him to elevate his legs when he is seated. Encouraged him to increase his protein intake to help with wound healing. Encouraged him to stop smoking. 3M double layer wraps will be used again this week to help with his bilateral lo wer leg edema. He has been tolerating the wraps well. His ulcers continue to remain healed. Will order Circaid compression stockings for him so they can be applied next week after the 3M wraps are removed. Will order Circaid compression stockings to apply to his lower extremities after we remove the 3M double layer wraps next week. Follow up in one week. Code Visit Office Visits / Consults: [id number] OV L3 Est
[2019-01-17 13:41] VITALS: BP 139/82; PULSE 70; RESP 18; TEMP 36.3
--- NOTE | 2019-01-17 15:39 | PCM.WC.PN ---
(1) Edema of both lower extremities Status: Chronic Code(s): R60.0 - Localized edema (2) Ulcer of right lower leg Status: Chronic Code(s): L97.919 - Non-pressure chronic ulcer of unspecified part of right lower leg with unspecified severity (3) Type 2 diabetes mellitus Status: Chronic Code(s): E11.9 - Type 2 diabetes mellitus without complications (4) Tobacco abuse disorder Status: Chronic Code(s): Z72.0 - Tobacco use Type of Wound Date of Service: 01/17/19 Chief Complaint: Right anterior lower leg ulcer History of Wound: Patient was hospitalized on 11/25/18 at [facility] in [place] for cellulitis. He was discharged to an ECF for help with his wound care. He is now home. His cellulitis left him with two opened ulcers of his right lower leg. He has a +3 pitting edema bilateral lower extremities. The posterior right leg ulcer is now healed. The right anterior lower leg is also healed. He had vascular studies on 12/27/18. Venous Duplex US showed the right sapheno-femoral junction is incompeten. The left great saphenous vein appears segmentally incompetent. The left small saphenous vein is patent and incompetent. The left accessory saphenous vein in the proximal calf is incompetent. The other veins are competent. Arterial studies show right ZAYDA=1.01, right digital brachial index is 0.61, there is evidence of mild, distal, small-vessel arterial occlusive disease at the digital level on the right. Left ZAYDA=1.07, the left digital-brachial index is 0.72, arterial rayna is normal on the left, including at the digital level. He denies any fevers, chills, nausea or vomiting. 3M double layer wraps will be used again this week to help with his bilateral lower leg edema. He has been tolerating the wraps well. His ulcers continue to remain healed. Will order Circaid compression stockings for him so they can be applied next week after the 3M wraps are removed. Progress of Wound: Right leg ulcer is healed. Edema has improved with 3M double wraps which he is tolerating well. He obtained his Circaids and was instructed how to put them on. - Physical Exam Vital Signs Temp Pulse Resp BP 97.3 F L 70 18 139/82 H 01/17/19 13:41 01/17/19 13:41 01/17/19 13:41 01/17/19 13:41 General: Alert, Oriented x3, Cooperative HEENT: Atraumatic Oral: Moist Mucosa Lungs: Normal air movement Cardiovascular: Regular rate Abdomen: Obese Extremities: Diminished Peripheral Pulses, Edema - continues to have edema after 3M double wraps but it is much improved. Skin: No breakdown Wound Measurements and Assessment WC - Nurse 1 - General Ulcer Measurement Start: 01/03/19 15:25 Freq: Status: Active Protocol: Activity Type Activity Date Activity User E-Sign Co-Sign Detail Recorded Client Recorded Date Recorded By Document 01/17/19 13:41 [facility] [id number] 01/17/19 13:48 [facility] 01/17/19 13:41 Wound Center Nurse 1 [Edema Assessment] -Lower Limb Edema Present Yes -Right Calf (cm) 46.9 -Right Ankle (cm) 32 -Left Calf (cm) 46 -Left Ankle (cm) 26.7 WC - Nurse 2 - General Ulcer CM Notes Start: 01/03/19 15:25 Freq: Status: Active Protocol: Activity Type Activity Date Activity User E-Sign Co-Sign Detail Recorded Client Recorded Date Recorded By Document 01/17/19 14:06 [id number] 01/17/19 14:07 01/17/19 14:06 Pain Scale: 0-10 Numeric [Pain] -Is Patient Pain Free? Yes Musculoskeletal: No Tenderness to Palpation of Joints or Extremities Neurological: Neuro grossly intact Psych/Mental Status: Normal Affect, Appropriate Debridement Note Post-Debridement Measurements/Treatment WC - Nurse 2 - General Ulcer CM Notes Start: 01/03/19 15:25 Freq: Status: Active Protocol: Activity Type Activity Date Activity User E-Sign Co-Sign Detail Recorded Client Recorded Date Recorded By Document 01/03/19 16:02 [id number] 01/03/19 16:03 Document 01/10/19 14:13 [id number] 01/10/19 14:13 Document 01/17/19 14:06 [id number] 01/17/19 14:07 01/03/19 01/10/19 01/17/19 16:02 14:13 14:06 Wound Center Nurse 2 #1 R Anterior Dotson -Correct Patient No No -Correct Side, Site, Position No No -Correct Procedure No No -Procedure Performed No No -Post Debridement Size (cm) - Length 0.1 0 -Post Debridement Size (cm) - Width 0.1 0 -Post Debridement Size (cm) - Depth 0.1 0 -Total Square Cm 0.01 0 -Wound/Ulcer Outcome Healed- Healed- Epithelialized Epithelialized Pain Scale: 0-10 Numeric Is Patient Pain Free? Yes Yes Yes No debridement was completed today Assessment/Plan Assessment: 1. Ulcer of right anterior lower leg- healed. 2. Edema of both lower extremities. 3. Type 2 DM. 4. Tobacco abuse disorder Plan: Patient was seen and evaluated in the wound center today. His right leg ulcer continues to remain healed today. Obtained arterial and venous studies which showed some venous insufficency bilaterally. There is small-vessel arterial occlusive disease at the digital level on the right. None on the left. He obtained the Circaids and he was instructed how to put them on and how to care for them. Encouraged him to elevate his legs when he is seated. Encouraged him to increase his protein intake to help with wound healing. Encouraged him to stop smoking. Discharged today. Code Visit Office Visits / Consults: [id number] OV L3 Est
== END 2019-01-30 23:59 ==
LOC: WC 13:30
PROVIDERS: Family Provider Internal Medicine; PCP Internal Medicine; Visit Provider Nurse Practitioner Family
DX: Z09 Encounter for follow-up examination after completed treatment for conditions other than malignant neoplasm (principal); Z72.0 Tobacco use; R60.0 Localized edema; E11.9 Type 2 diabetes mellitus without complications
CPT/HCPCS: 99212; 99213; G0463